=== PATIENT | female | born 1975 | race Caucasian/White ===

== ENCOUNTER → 2017-04-26 | Day surgery (SDC) | payer OTHER ==
[~2017-04-26] VITALS: Ht 172.7 cm; Wt 77.1 kg
[~2017-04-26] MED LIST: CYCLOBENZAPRINE10 M1 PO; DISULFIRAM PO; ESCITALOPRAM OX20 MG PO; ESCITALOPRAM10 MG PO; HYDROXYZINE HCL10 M2; IBUPROFEN800 MG PO; LAMOTRIGINE25 M3 PO; MELOXICAM15 M1 PO; PERCOCET 325 MG1 TA2 PO; VITAFOL-ONE1 SGL PO; ZOFRAN ODT4 MG PO; [UNRECOGNIZED DRUG - OTHER] PO
--- NOTE | 2017-05-01 13:58 | Operative Report ---
Operative/Inv Procedure Report Surgery Date: 04/26/17 Name of Procedure: Removal of skin tag d&c HYSTEROSCOPY Pre-Operative Diagnosis: mENORRHAGIA Post-Operative Diagnosis: sAME Estimated Blood Loss: scant Surgeon/Automatic Silk Screen Printer: Lashonda Mooney MD Anesthesia: moderate sedation Operative/Procedure Note Note: Patient was taken to the operating room placed in dorsal supine position. After adequate anesthesia, patient was prepped and draped for surgery. Examination under anesthesia was performed. CO2 tenaculum was placed on the anterior lip of the cervix gentle downward traction was used. The cervix was dilated 29 Hegar to left insertion of the hysteroscope. Under direct visualization to hysteroscopy was performed using gas hysteroscope was removed and endocervical curettage was performed. And endometrial curettage was performed. All instruments removed from the vagina. R cane was injected underneath the skin of the skin tag 1 cm skin tag was noted on the right vulva needle tip Bovie was used for removal hemostasis was apparent specimen was sent to pathology The counts were correct the patient was awakened from anesthesia. And transported to recovery room awake and alert.
== END ==
LOC: STS 04:37
DX: N92.0 Excessive and frequent menstruation with regular cycle (principal); N72 Inflammatory disease of cervix uteri; D28.0 Benign neoplasm of vulva; R56.9 Unspecified convulsions; F17.200 Nicotine dependence, unspecified, uncomplicated
CPT/HCPCS: J1885; J2250

== ENCOUNTER 2017-09-17 17:47 | Emergency (ER) | payer OTHER ==
--- NOTE | 2017-09-17 18:17 | ED AMS/SEIZURE/WEAK/DIZZY ---
History of Present Illness General Chief Complaint: Seizure Stated Complaint: SEIZURE Source: patient Exam Limitations: no limitations Vital Signs & Intake/Output Vital Signs & Intake/Output Vital Signs Date Time Temp Pulse Resp B/P B/P Pulse O2 O2 Flow FiO2 Mean Ox Delivery Rate 09/17 1940 98.0 79 17 109/66 99 Room Air 09/17 1751 98.3 81 17 105/61 96 Room Air Allergies Coded Allergies: neomycin (RASH 02/15/17) Reconcile Medications Cyclobenzaprine HCl 10 MG TABLET 1 TAB PO AD PRN MUSCLE SPASMS (Reported) Disulfiram 500 MG TABLET 1 TAB PO DAILY ALCOHOL (Reported) Escitalopram Oxalate 20 MG TABLET 1 TAB PO DAILY MENTAL HEALTH (Reported) Hydroxyzine HCl (hydrOXYzine HCl) (Unknown Strength) TABLET (Unknown Dose) UNKNOWN (Reported) Lamotrigine 25 MG TABLET 1 TAB PO DAILY SEIZURE (Reported) Meloxicam 15 MG TABLET 1 TAB PO AD PRN PAIN/INFLAMMATION (Reported) Triage Note: PT FOUND SEIZING IN SHOWER BY , SZ LASTED "A COUPLE MINUTES" PER EMS. SLIGHTLY POST ICTAL ON EMS ARRIVAL. A/O X 4 ON ARRIVAL TO ED. TAKES KEPPRA FOR SZ DISORDER, REPORTS COMPLIANCE WITH MEDS. STATES HIT HEAD IN SHOWER. DENIES CERVICAL TENDERNESS. Triage Nurses Notes Reviewed? yes Onset: Abrupt Duration: hour(s): Timing: single episode today Injury Environment: home No Modifying Factors: none : No Patient currently breastfeeds: No HPI: 42-year-old female comes into the emergency room for further evaluation of head injury after a grand mal seizure at home. Patient reports that she has a history of generalized seizure disorder. She is on Keppra. She's been diagnosed since the early 1999. She has a few seizures every year. Patient reports that she was taking a shower and her reports that he found her on the ground in the tub. He heard a loud bang. Patient was having a seizure in the tub and reports that she looks that she hit her head. She complains of a headache. She denies any vomiting. Denies any neck pain rib pain extremity injuries. Denies any lower extremity injuries. She came in for further evaluation. (Matt GUZMAN,Tonny) Past History Travel History Traveled to [place] past 21 day No Medical History Any Pertinent Medical History? see below for history Neurological: seizure Musculoskeletal: osteoarthritis Psychiatric: alcohol dependence, anxiety, depression Surgical History Surgical History: non-contributory Psychosocial History What is your primary language Slovak Tobacco Use: Never used ETOH Use: occasional use Family History Hx Contributory? No (Tonny Regalado) Review of Systems Review of Systems Constitutional: Reports: no symptoms. EENTM: Reports: no symptoms. Respiratory: Reports: no symptoms. Cardiovascular: Reports: no symptoms. GI: Reports: no symptoms. Genitourinary: Reports: no symptoms. Musculoskeletal: Reports: no symptoms. Skin: Reports: no symptoms. Neurological/Psychological: Reports: see HPI. Hematologic/Endocrine: Reports: no symptoms. Immunologic/Allergic: Reports: no symptoms. All Other Systems: Reviewed and Negative (Tonny Regalado) Physical Exam Physical Exam General Appearance: well developed/nourished, no apparent distress, alert, awake Head: atraumatic, normal appearance Eyes: Bilateral: normal appearance, PERRL, EOMI. Ears, Nose, Throat: normal pharynx, normal ENT inspection, hearing grossly normal Neck: normal inspection Respiratory: normal breath sounds, no respiratory distress, no chest wall tenderness Cardiovascular: regular rate/rhythm Gastrointestinal: soft, non-tender Back: normal inspection, normal range of motion Extremities: normal range of motion, normal inspection, full range of motion of knees bilaterally and hips bilaterally, full range of motion of shoulders bilaterally, negative empty can test, no tenderness with palpation of any of the extremities, Neurologic/Psych: no motor/sensory deficits, awake, alert, oriented x 3, normal gait, normal mood/affect Skin: intact, normal color Core Measures ACS in differential dx? No CVA/TIA Diagnosis No Sepsis Present: No Sepsis Focused Exam Completed? No NEXUS Criteria: Negative: neuro deficit, spinal tenderness, altered mental status, intoxication present, distracting injury presen. (Tonny Regalado) Progress Differential Diagnosis: arrythmia, alcohol intoxication, CVA/stroke, dehydration , intracranial mass/tumor, concussion Plan of Care: Orders Procedure Date/time Status CT HEAD WO IV CONTRAST 09/18 1823 Active Diagnostic Imaging: Viewed by Me: CT Scan. Discussed w/RAD: CT Scan. Radiology Impression: PATIENT: SAVI LAROSE PRESENT AGE: 42 PATIENT ACCOUNT NO: [id number] : 77 LOCATION: [facility] ORDERING PHYSICIAN: Tonny GUZMAN SERVICE DATE: 09/17/17 EXAM TYPE : CAT - CT HEAD WO IV CONTRAST EXAMINATION: CT HEAD WITHOUT CONTRAST CLINICAL INFORMATION: Seizure and head trauma. COMPARISON: None TECHNIQUE: Contiguous axial imaging was performed from the skull base to vertex without intravenous administration of contrast. DLP: 626 mGy-cm FINDINGS: There is no evidence of acute intracranial hemorrhage or territorial infarction. No abnormal mass effect or midline shift is seen. Huitron to white matter differentiation is well preserved. No extra-axial fluid collections are identified. The ventricles are normal in size. There is no abnormal attenuation within the brain parenchyma. The osseous structures and soft tissues are normal. The mastoid air cells and visualized portions of the paranasal sinuses are well aerated. IMPRESSION: No acute intracranial pathology. DICTATED BY: Lester Marmolejo MD DATE/TIME DICTATED:09/17/171855 TELEMARKETING SUPERVISOR:DARIANA DATE/TIME TRANSCRIBED:1855 CONFIDENTIAL, DO NOT COPY WITHOUT APPROPRIATE AUTHORIZATION. < Electronically signed in Other Vendor System> SIGNED BY: Lester Marmolejo MD 09/17/171899 Initial ED EKG: none (Matt GUZMAN,Tonny) Departure Departure Disposition: HOME OR SELF CARE Condition: Stable Clinical Impression Primary Impression: Head injury Secondary Impressions: Seizure Referrals: Lester Beth MD (PCP/Family) Additional Instructions: Return if any other concerns worsening symptoms. Follow-up with primary care doctor. Return if any other concerns worsening symptoms. Follow-up with your neurologist. Please go over all results of today's visit with your primary care doctor. Contact your primary care doctor to let them know you were here in the emergency room. There may be nonspecific findings which may not be related to your visit today here in the emergency room but may require further evaluation and chronic monitoring by your primary care doctor. If you had a laceration today the chance of foreign body always remains. You should follow-up with your primary care doctor for recheck in 3-5 days for a wound check. If you had an x-ray done there is a chance that a fracture could have been missed on initial read and you should follow-up with your primary care doctor for repeat x-rays if symptoms persist. If your blood pressure was elevated here in the emergency room please have rechecked by [facility] primary care doctor within the next 48. If you were prescribed a narcotic here in the emergency room or any type of controlled substances you're not allowed to drive while taking this medication or operate any type of heavy machinery. Narcotics can make you feel lightheaded dizziness nausea and can cause constipation. You may need to poultry picking machine tender a stool softener. Thank you for choosing [facility] emergency room. Please return to the emergency room immediately if you have any other concerns worsening of symptoms. Departure Forms: Customer Survey General Discharge Information Comments 09/17/2017 8:05:33 PM She clinically looks well. In no apparent distress. Nontoxic-appearing. No evidence of acute trauma. Follow-up with primary care doctor. Return if any other concerns worsening symptoms. Follow-up with a neurologist. Patient has a history of seizure disorder for many years. (Tonny Regalado) PA/CLEAN IN PLACES OPERATOR Co-Sign Statement Statement: ED Attending supervision documentation- [] I saw and evaluated the patient. I have also reviewed all the pertinent lab results and diagnostic results. I agree with the findings and the plan of care as documented in the PA's/CLEAN IN PLACES OPERATOR's documentation. [X] I have reviewed the ED Record and agree with the PA's/CLEAN IN PLACES OPERATOR's documentation. [] Additions or exceptions (if any) to the PAs/CLEAN IN PLACES OPERATOR's note and plan are summarized below: [] (Liz TINOCO,Lester Rivas) ED Attending Observation Initial Observation Note: I have seen and personally examined SAVI LAROSE on 09/17/17 at 1841. I agree with the current emergency department documentation. The disposition (admission or discharge) is uncertain at this time, she needs a period of observation for the following reason(s): The ED Nurse caring for this patient has been personally informed as to what the patient is being observed for. (Tonny Regalado)
--- NOTE | 2017-09-17 19:00 | CT SCAN REPORT ---
EXAMINATION: CT HEAD WITHOUT CONTRAST CLINICAL INFORMATION: Seizure and head trauma. COMPARISON: None TECHNIQUE: Contiguous axial imaging was performed from the skull base to vertex without intravenous administration of contrast. DLP: 626 mGy-cm FINDINGS: There is no evidence of acute intracranial hemorrhage or territorial infarction. No abnormal mass effect or midline shift is seen. Huitron to white matter differentiation is well preserved. No extra-axial fluid collections are identified. The ventricles are normal in size. There is no abnormal attenuation within the brain parenchyma. The osseous structures and soft tissues are normal. The mastoid air cells and visualized portions of the paranasal sinuses are well aerated. IMPRESSION: No acute intracranial pathology.
[2017-09-17 19:40] VITALS: BP 109/66
== END 2017-09-17 19:42 ==
LOC: ERH 17:47
DX: S09.90XA Unspecified injury of head, initial encounter (principal); R56.9 Unspecified convulsions; W18.2XXA Fall in (into) shower or empty bathtub, initial encounter; Y92.002 Bathroom of unspecified non-institutional (private) residence as the place of occurrence of the external cause; Y93.E1 Activity, personal bathing and showering